=== PATIENT | male | born 1980 | race Caucasian/White ===

== ENCOUNTER 2019-10-25 15:23 | Emergency (ER) | payer SELFPAY ==
[~2019-10-25] VITALS: Ht 188 cm; Wt 105.0 kg
[2019-10-25 15:24] VITALS: BP 159/98
[2019-10-26] MEDS ORDERED: zithromax (10:59)
[2019-10-26] MEDS ORDERED: OMEP40CA97 PO (10:59)
[2019-10-26] MEDS ORDERED: prednisone (10:59)
[2019-10-26] MEDS ORDERED: XARE15TA PO (14:18)
[2019-10-26] MEDS ORDERED: AZIT-12 PO ×2 (14:55→14:59)
[2019-10-26] MEDS ORDERED: PRED20TA PO (15:02)
[2019-10-26] MEDS ORDERED: PRIL20TA2 PO (15:18)
== END 2019-10-25 15:32 | disposition left against medical advice (07) ==
LOC: M ED 15:23
DX: Z53.21 Procedure and treatment not carried out due to patient leaving prior to being seen by health care provider (principal)

== ENCOUNTER 2019-10-26 10:50 | Observation (INO) | payer OTHER, SELFPAY ==
[~2019-10-26] VITALS: Ht 188 cm; Wt 105.1 kg
[2019-10-26] MEDS ORDERED: OMEP40CA97 PO (10:59)
[2019-10-26] MEDS ORDERED: zithromax (10:59)
[2019-10-26] MEDS ORDERED: prednisone (10:59)
[2019-10-26] MEDS ORDERED: NS 1,000 ML IV ONE (11:15)
[2019-10-26 12:13] LABS: INR 0.97; PROTHROMBIN TIME 12.6 SECONDS (11.8-14.0)
[2019-10-26 12:14] LABS: PARTIAL THROMBOPLASTIN TIME 27.9 SECONDS (25.0-38.4)
[2019-10-26 12:16] LABS: D-DIMER QUANT 2688.98 ng/ml (<500)
[2019-10-26] MEDS ORDERED: ISOVUE-370 76% 100ML VIAL As Ordered ONE (12:17)
[2019-10-26 12:22] LABS: BASO % 0.4 % (0.0-1.0); EOS # 0.1 10^3/uL (0.0-0.5); EOS % 1.2 % (0.0-3.0); HEMATOCRIT 43.3 % (42.0-52.0); HEMOGLOBIN 14.2 g/dl (13.5-17.5); LYMPH # 2.2 10^3/uL (1.5-5.0); LYMPH % 18.9 % (24.0-44.0); MEAN CORPUSCULAR HEMOGLOBIN 29.1 pg (27.0-33.0); MEAN CORPUSCULAR HGB CONC 32.8 g/dl (32.0-36.5); MEAN CORPUSCULAR VOLUME 88.7 fl (80.0-96.0); MONO # 1.1 10^3/uL (0.0-0.8); NEUTROPHILS # 7.8 10^3/uL (1.5-8.5); NEUTROPHILS % 68.8 % (36.0-66.0); PLATELET COUNT, AUTOMATED 328 10^3/uL (150-450); RED BLOOD COUNT 4.88 10^6/uL (4.30-6.10); WHITE BLOOD COUNT 11.4 10^3/uL (4.0-10.0)
[2019-10-26 12:31] LABS: C REACTIVE PROTEIN QUANTITATIV 7.95 MG/DL (0.00-0.30); CK-MB VALUE MASS < 1.0 NG/ML (<3.6); CPK CREATINE PHOSPHOKINASE 73 U/L (39-308); MB/CK RELATIVE INDEX 1.37 (< OR =4); TROPONIN I < 0.02 NG/ML (< 0.10)
[2019-10-26] MEDS ORDERED: ENOXAPARIN 100MG/1ML SYRINGE (J1650 PER 10MG) SC ONE (14:00)
--- NOTE | 2019-10-26 14:06 | REP ---
REASON: Dyspnea. PRIORS: None. CONTRAST: 100 mL Isovue 370. There is excellent visualization of the pulmonary arterial vasculature. Multiple abnormal focal filling defects are seen in the third and fourth order pulmonary arteries in multiple areas bilaterally. There is no abnormal filling defects seen in the main pulmonary arterial trunk or right and left main pulmonary arteries. There are no pleural or pericardial effusions. There is mediastinal adenopathy. The imaged upper abdomen and imaged osseous structures are within normal limits. Evaluation of the lung moody shows patchy scattered interstitial and airspace opacities. IMPRESSION: 1. There is evidence of bilateral pulmonary emboli as described above. 2. There is evidence of hilar adenopathy. 3. Lung parenchymal opacities as described above suspicious for pneumonia and/or atelectasis. Certainly, neoplastic change cannot be ruled out. Followup is recommended. 4. Other findings as described above. ? Electronically Signed by Sinan Benito DO 10/26/2019 02:14 P
[2019-10-26] MEDS ORDERED: XARE15TA PO (14:18)
[2019-10-26 14:32] LABS: INR 1.03; PROTHROMBIN TIME 13.2 SECONDS (11.8-14.0)
[2019-10-26 14:33] LABS: PARTIAL THROMBOPLASTIN TIME 36.5 SECONDS (25.0-38.4)
[2019-10-26] MEDS ORDERED: AZIT-12 PO ×2 (14:55→14:59)
[2019-10-26] MEDS ORDERED: PRED20TA PO (15:02)
[2019-10-26] MEDS ORDERED: OXAZEPAM 10 MG CAP PO PRN (15:15)
[2019-10-26] MEDS ORDERED: IPRATROPIUM 0.5MG/ALBUTEROL 2.5MG INH SOL UD 3ML (DUONEB)(J7620) NEB PRN (15:15)
[2019-10-26] MEDS ORDERED: PRIL20TA2 PO (15:18)
[2019-10-26] MEDS: IPRATROPIUM 0.5MG/ALBUTEROL 2.5MG INH SOL UD 3ML (DUONEB)(J7620) NEB SCH ×2 (15:32→19:22)
[2019-10-26 15:50] VITALS: BP 147/92
[2019-10-26 22:00] VITALS: BP 144/91
[2019-10-26] MEDS ORDERED: RIVAROXABAN 15 MG TAB (XARELTO) PO ONE (22:00)
[2019-10-27 00:36] VITALS: BP 127/82
[2019-10-27 04:00] VITALS: BP 127/83
[2019-10-27 06:11] LABS: HEMATOCRIT 39.4 % (42.0-52.0); HEMOGLOBIN 12.9 g/dl (13.5-17.5); MEAN CORPUSCULAR HEMOGLOBIN 29.6 pg (27.0-33.0); MEAN CORPUSCULAR HGB CONC 32.7 g/dl (32.0-36.5); MEAN CORPUSCULAR VOLUME 90.4 fl (80.0-96.0); PLATELET COUNT, AUTOMATED 311 10^3/uL (150-450); RED BLOOD COUNT 4.36 10^6/uL (4.30-6.10); WHITE BLOOD COUNT 7.5 10^3/uL (4.0-10.0)
[2019-10-27 06:34] LABS: HEMOGLOBIN A1c 5.7 %
[2019-10-27 06:41] LABS: BLOOD UREA NITROGEN 7 MG/DL (7-18); CALCIUM LEVEL 8.7 MG/DL (8.5-10.1); CARBON DIOXIDE LEVEL 24 MEQ/L (21-32); CHLORIDE LEVEL 110 MEQ/L (98-107); CHOLESTEROL LEVEL 184 MG/DL (<200); CHOLESTEROL RISK RATIO 6.571 (<5); CREATININE FOR GFR 0.94 MG/DL (0.70-1.30); GLOMERULAR FILTRATION RATE > 60.0 (>60); GLUCOSE, FASTING 95 MG/DL (70-100); HDL CHOLESTEROL 28 MG/DL (>40); LDL CHOLESTEROL 126 MG/DL (<100); NON-HDL-C 156 MG/DL; POTASSIUM SERUM 4.5 MEQ/L (3.5-5.1); SODIUM LEVEL 141 MEQ/L (136-145); TRIGLYCERIDES LEVEL 152 MG/DL (<150)
[2019-10-27] MEDS: IPRATROPIUM 0.5MG/ALBUTEROL 2.5MG INH SOL UD 3ML (DUONEB)(J7620) NEB SCH (07:07)
[2019-10-27] MEDS ORDERED: RIVAROXABAN 15 MG TAB (XARELTO) PO SCH (08:00)
--- NOTE | 2019-10-27 08:31 | ECGEPIP ---
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 Order Number: [id number] Reading MD: Nic Haro Measurements Intervals [place] Rate: 73 P: 46 AK: 157 QRS: 0 QRSD: 96 T: -4 QT: 376 QTc: 415 Interpretive Statements SINUS RHYTHM WITH SINUS ARRHYTHMIA MODERATE VOLTAGE CRITERIA FOR LVH, CONSIDER NORMAL VARIANT NONSPECIFIC T WAVE ABNORMALITIES NO PRIORS FOR COMPARISON Electronically Signed on 10-27-2019 8:30:43 EDT by Nic Haro
[2019-10-27] MEDS ORDERED: AZITHROMYCIN 250MG TABLET PO SCH (09:00)
[2019-10-27] MEDS ORDERED: OMEPRAZOLE 20 MG CAP PO SCH (09:00)
[2019-10-27] MEDS ORDERED: predniSONE 20 MG TAB PO SCH (09:00)
--- NOTE | 2019-10-27 14:41 | HPE ---
DATE OF ADMISSION: 10/26/2019 [facility]. CHIEF COMPLAINT: Shortness of breath. Pleuritic change pain. HISTORY OF PRESENTING ILLNESS: 39-year-old male with no past medical history, active-duty , works at [employer], presents to emergency room with complaints of shortness of breath noted last week and pleuritic chest pain that started . Patient has had no fever or chills. Had a dry cough, which was nonproductive. No sick contacts. Taken Aleve and Naprosyn, two tablets 400 mg total about once or twice a day for the past 2 days with no chest pain, pressure, tightness, lightheadedness, or dizziness. Patient denies any fever or chills. Complains of some palpitations when he walks with some dyspnea on exertion and one night had to sit up to sleep in a recliner. Patient denies lower extremity edema and was seen for possible chronic obstructive pulmonary disease (COPD) exacerbation, given prednisone taper with some improvement over the past 2 days. Patient had never been tested for COPD emphysema, but smoked cigarettes for the past 20 years, a pack a day since about 3 years ago. Patient has no prior history of deep venous thrombosis (DVT), pulmonary embolus (PE). He went to the emergency room but left against medical advice before being seen yesterday. Re-presented today with worsening symptoms overnight, was found to be medically stable. Blood pressure 142/92, 99% on room air. CT chest showed bilateral pulmonary embolism and hilar lymphadenopathy. Lung parenchymal opacities suspicious for pneumonia or atelectasis. Certainly, neoplastic change could not be ruled out. Followup is recommended. Patient denies any weight gain or weight loss. Denies any sore throat, ear discharge, tinnitus, nausea, vomiting, abdominal pain, diarrhea, constipation, upper or lower extremity weakness. Denies polyuria or polydipsia, polyphagia. Denies any anxiety, depression. PAST MEDICAL HISTORY: None. PAST SURGICAL HISTORY: None. ALLERGIES: No known drug allergies. HOME MEDICATIONS: - As needed Aleve and Naprosyn, [id number] - multivitamin - Osteo Bi-Flex SOCIAL HISTORY: Smoked a pack a day for 20 years, 200 pack year history until 3 years ago. Quit smoking 3 years ago. Alcohol use depends, last week was whisky last . No sick contacts. Active-duty . Current on lockdown with no recent travel. FAMILY HISTORY: Father alive, age 77, hypertension. Mother alive, age 72, unknown medical problems. One of six children, three brothers and 2 sisters, unknown medical problems. REVIEW OF SYSTEMS: Per history of present illness (HPI). 12-point system otherwise negative. PHYSICAL EXAM: Temperature 98.3, pulse 87, respiratory rate 18, blood pressure 147/92, 99% on room air. Generally: Patient is awake, alert, oriented times three answering questions appropriately. No conversational dyspnea. No use of respiratory accessory muscles. No tracheal deviation. No nasal flaring. Anicteric sclerae. No jaundice. Pupils round, reactive to light, accommodation. Extraocular muscles are intact. Lungs are clear to auscultation. No wheezing, rales, or rhonchi. Heart S1, S2. Sinus rhythm. No murmurs, rubs, or gallops. Abdomen is soft, nontender, nondistended, positive bowel sounds. Extremities: No cyanosis, clubbing, or pitting edema. EKG: Sinus rhythm, ventricular rate of 73. NV interval 157, QRS of 96. No ST-T wave changes. White count 11.4, hemoglobin 14, hematocrit 43, platelet count 328, 68% neutrophils, 1.2 eosinophils, 18 lymphocytes. Troponin less than 0.02. CRP 7.95. BNP 95. INR 1.03. D-dimer 2688. Protein S, C, antithrombin III, factor V Leiden, anticardiolipin, COVID-19 are pending. Factor II mutation pending. Sodium 140, potassium 4.1, chloride 106, bicarbonate 23, BUN 9, creatinine 0.7, glucose 100. Hematocrit 47. Respiratory panel pending. Heart S1, S2 sinus rhythm. Lungs clear to auscultation. Air entry is equal bilateral and no wheezing or rales. Abdomen, soft, nontender, nondistended. Positive bowel sounds. Extremities: No cyanosis, clubbing, or pitting edema. No calf tenderness. IMAGING STUDIES: CT chest: Bilateral pulmonary emboli. Multiple abnormal focal filling defects in the third, fourth order of pulmonary arteries bilaterally. No abnormal filling defects seen in the main pulmonary arterial trunk or right and left main pulmonary arteries. There are no pleural or pericardial effusions. There is mediastinal adenopathy. Evaluation of the lungs shows patchy scattered interstitial and air space opacities. There is evidence of bilateral pulmonary emboli, hilar adenopathy. Lung opacities suspicious for pneumonia and/or atelectasis. Certainly, neoplastic change cannot be ruled out. Followup is recommended. ASSESSMENT AND PLAN: 39-year-old male presents with palpitations, exertional shortness of breath, pleuritic chest pain that started a week ago, worsened, and left after presenting to the emergency room (ER) yesterday, presents again today for admission, found to have bilateral pulmonary embolus (PE), hilar adenopathy, suspicious for possible pneumonia or atelectasis, neoplasm cannot be ruled out, with a 25-year history of smoking, was treated as outpatient for possible chronic obstructive pulmonary disease (COPD) exacerbation on prednisone and azithromycin. Patient being admitted for observation for following issues: 1. Bilateral PE. Patient is hemodynamically stable. Received Lovenox 1 mg/kg subcu and 100 mg in the emergency room. Patient will be continued on Xarelto, loading dose of 15 mg twice a day for 21 days then 20 mg daily. Patient's hypercoagulable state has been unprovoked. 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 Due to complaints of exertional dyspnea as well as needing to sleep in a recliner at home, we will obtain an echocardiogram to check for pulmonary hypertension for baseline. Patient has quit smoking about 20 years ago. Due to body mass index (BMI), also at risk of obstructive sleep apnea. May benefit from pulmonary referral as outpatient. CT chest shows the hilar adenopathy, and may benefit from outpatient referral to [facility]. Repeat CT chest in 1-month's time. 2. 20-pack year history of tobacco with no formal diagnosis of COPD. No wheezing on exam, but had been on tapering dose of steroids, which we will continue as well as azithromycin for antiinflammatory effect. 3. Abnormal CT with hilar adenopathy and questionable neoplastic changes. In light of 20-pack year history tobacco abuse, patient may benefit from referral to [facility] and repeat CT chest in 1-month's time. 4. Obesity. At risk for obstructive sleep apnea. May benefit from a sleep study as outpatient. Will obtain an echocardiogram to rule out pulmonary hypertension. 5. Chronic alcohol use. Patient was reluctant to state how much whiskey he drinks on a daily basis, therefore, we will monitor and will provide with Serax as needed for withdrawal symptoms. WARREND
[2019-10-29] MEDS ORDERED: predniSONE 10 MG TAB PO SCH (09:00)
[2019-10-30 00:06] LABS: BODY FLUID CULTURE Not indicated. (.); LEGIONELLA ANTIGEN URINE Negative (Negative); ORGANISM ID Not indicated. (.); SPECIMEN SOURCE Urine (.); URINE STREP PNEUMONIAE ANTIGEN Negative (Negative)
--- NOTE | 2019-10-30 17:26 | DSES ---
DATE OF ADMISSION: 10/26/2019 DATE OF DISCHARGE: 10/27/2019 PRIMARY DISCHARGE DIAGNOSES: 1. Bilateral pulmonary embolism. 2. Hilar adenopathy of unknown etiology. 3. 20-pack year history of smoking. 4. Obesity, body mass index (BMI) of 29.7. DISCHARGE MEDICATIONS: - Xarelto 15 mg twice a day for 21 days and then primary care physician to order 20 mg daily for three months - Prilosec 20 daily - prednisone 40 daily tapered dose, may resume prior dose prior to admission - azithromycin as previously directed DISCHARGE INSTRUCTIONS: The patient is to see his primary care physician within five days of hospital discharge. 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 Hypercoagulable workup has been sent. Primary care physician is also to refer to [facility] for pulmonary function testing and further evaluation of the patient's lymphadenopathy. HOSPITAL COURSE: This is a 39-year-old male with complaints of worsening shortness of breath, pleuritic chest pain since last . He came in to the emergency room on 10/25/2019 but left before being seen, represents due to ongoing pain, unable to be comfortable despite taking ibuprofen times two tablets at home. The patient also complained of a dry cough. Respiratory panel was negative. COVID-19 was negative. He had no fever. CT chest showed bilateral pulmonary embolism. He received Lovenox 100 mg subcutaneously times one and started on Xarelto 15 mg twice a day. The patient was hemodynamically stable with systolic pressure of 147/92 and was not hypoxic, saturating 93% to 99% on room air. He was admitted for observation overnight under telemetry. No signs of fever or acute infection. Per the patient, his outpatient provider had given him prednisone and azithromycin for presumed emphysema exacerbation but has had no improvement. CT chest showed hilar lymphadenopathy and patchy opacities concerning for possible malignancy or infection. Since the patient has had no fever, white count which was 7.5, the patient was not given any additional antibiotics. PHYSICAL EXAMINATION ON DISCHARGE: Temperature 98, pulse 66, respiratory rate 20, blood pressure 127/83, 97% on room air. Generally, the patient is awake, alert and oriented times three, answering questions appropriately. Lungs are clear to auscultation. No wheezing, rales, or rhonchi. Heart: S1, S2, sinus rhythm. Abdomen is soft, nontender, nondistended. Extremities have no pitting edema. LABORATORY DATA: White count 7.5, hemoglobin 12, hematocrit 29, platelet count 311. Sodium 141, potassium 4.5, chloride 110, bicarbonate 24, BUN 7, creatinine 0.94, glucose 95, A1c 5.7, BNP 95, TSH 2.74. Anticardiolipin IgG, IgA pending. COVID-19 negative. Respiratory panel negative. Factor II mutation pending. CT chest 10/26/2019: Multiple abnormal focal defects in the third and fourth order of pulmonary arteries in multiple areas bilaterally. There is no abnormal filling defect seen in the main pulmonary arterial trunk or right and left main pulmonary arteries. There are no pleural or pericardial effusions. There is mediastinal adenopathy. Evaluation of the lung moody show patchy scattered interstitial and airspace opacities. There is evidence of bilateral pulmonary emboli as described. There is evidence of hilar adenopathy. Lung parenchymal opacities as described suspicious for pneumonia and/or atelectasis, certainly neoplastic change can not be ruled out, followup is recommended. The patient was instructed to have a pulmonary referral to further evaluate the parenchymal opacities with hilar adenopathy in order to rule out for sarcoidosis or malignancy as outpatient. TIME SPENT ON HOSPITAL DISCHARGE: 30 minutes. SOUMYA
[2019-10-31] MEDS ORDERED: predniSONE 20 MG TAB PO SCH (09:00)
[2019-11-02] MEDS ORDERED: predniSONE 10 MG TAB PO SCH (09:00)
== END 2019-10-27 11:20 | disposition home or self-care (01) ==
LOC: M ED 10:50 → M ED INP 13:59 → ENRESERVTM 15:36 → M MSPAV 16:13
PROVIDERS: ADMIT General Practice; ATTEND General Practice
DX: I26.99 Other pulmonary embolism without acute cor pulmonale (principal); R59.0 Localized enlarged lymph nodes; E66.9 Obesity, unspecified; Z87.891 Personal history of nicotine dependence; F10.10 Alcohol abuse, uncomplicated; Z11.59 Encounter for screening for other viral diseases
CPT/HCPCS: 36415; 71275; 80047; 80048; 80061; 81240; 82550; 82553; 83036; 83880; 84145; 84311; 84443; 84484; 85025; 85027; 85300; 85301; 85303; 85305; 85379; 85610; 85730; 86140; 86147; 87449; 87486; 87581; 87633; 87798; 87899; 93005; 94640; 96360; 96372; 99284; J1650; Q9967; U0002

== ENCOUNTER → 2019-11-30 | Outpatient (CLI) | payer OTHER ==
[~2019-11-30] MED LIST: AZIT-12 PO; OMEP40CA97 PO; PRED20TA PO; PRIL20TA2 PO; XARE15TA PO; XARE20TA PO; prednisone; zithromax
--- NOTE | 2019-11-30 09:43 | REP ---
Clinical: Follow up abnormal findings. Technique: Axial noncontrast images from the thoracic inlet to the upper abdomen with coronal and sagittal re-formations. Findings: Very subtle scattered areas of opacity and finding reticulonodular interstitial changes along with trace bibasilar atelectasis and few small peripheral noncalcified nodules measuring up to 13 mm are identified on current examination. These findings appear somewhat less pronounced and improved as compared to 10/26/2019. No new pleuroparenchymal process is appreciated and the previously noted adenopathy has improved as well. No effusion. No pneumothorax. Tracheobronchial tree is patent. Mediastinum demonstrates normal thoracic aorta, pulmonary vasculature and heart/pericardium by noncontrast evaluation. Surrounding musculoskeletal structures are intact. Limited upper abdomen demonstrates normal bilateral adrenal glands. Impression: Abnormal findings as described above are identified but appear improved as compared to recent prior examination. Continued 3 - 6 month follow-up examination to evaluate for complete resolution may be warranted. Electronically Signed by Samuel Melendez MD 11/30/2019 09:34 A
== END ==
LOC: M RAD 08:42
PROVIDERS: ATTEND Internal Medicine Pulmonary Disease
DX: R91.8 Other nonspecific abnormal finding of lung field (principal); I26.99 Other pulmonary embolism without acute cor pulmonale

== ENCOUNTER → 2019-11-30 | Outpatient (CLI) | payer OTHER ==
--- NOTE | 2019-11-30 08:53 | REP ---
Clinical: Left lower extremity pain . Technique: Cisse scale and color Doppler evaluation of the left lower extremity using linear high frequency transducer. Findings: Ultrasound examination of the left lower extremity deep venous structures from the common femoral vein to the popliteal vein demonstrates normal compressibility flow and wave patterns in response to respiration and augmentation. There is no evidence for deep venous thrombosis. Impression: No evidence for deep venous thrombosis. Electronically Signed by Samuel Melendez MD 11/30/2019 08:44 A
== END ==
LOC: M RAD 08:15
PROVIDERS: ATTEND Specialist
DX: I26.99 Other pulmonary embolism without acute cor pulmonale (principal)

== ENCOUNTER → 2020-02-14 | Outpatient (CLI) | payer OTHER ==
[~2020-02-14] MED LIST changes: +XARE10TA PO
--- NOTE | 2020-03-13 10:38 | REP ---
NONCONTRAST CHEST CT CLINICAL: Follow-up abnormal lung findings. TECHNIQUE: Axial noncontrast images from the thoracic inlet to the upper abdomen with coronal and sagittal reformations. COMPARISON: 11/30/2019, 10/26/2019. FINDINGS: Current examination demonstrates essentially complete resolution of the previously noted scattered pulmonary parenchymal infiltrates. Incident azygos fissure again noted. No acute consolidation, significant nodule, or mass. No pleural effusion. No pneumothorax. Tracheobronchial tree is patent. No obvious adenopathy. Further evaluation of the mediastinum demonstrates normal thoracic aorta, pulmonary vasculature, and heart/pericardium. Surrounding musculoskeletal structures are intact. Limited upper abdomen demonstrates normal bilateral adrenal glands and diffuse hepatosteatosis. IMPRESSION: * Essentially complete resolution to the previously noted multifocal infiltrates. * No new acute mediastinal or pleural parenchymal process appreciated. * Hepatosteatosis. MTDD
== END ==
LOC: M RAD 13:35
PROVIDERS: ATTEND Internal Medicine Pulmonary Disease
DX: R91.8 Other nonspecific abnormal finding of lung field (principal); K76.0 Fatty (change of) liver, not elsewhere classified